=== PATIENT | female | born 1990 | race Caucasian/White ===

== ENCOUNTER 2019-10-09 19:59 | Emergency (ER) | payer OTHER ==
[~2019-10-09] VITALS: Ht 167.6 cm; Wt 67.1 kg
--- OUTSIDE RECORDS SUMMARY | ~2019-10-09 | XMS | Clinical Summary ---
Demographics + + + | Address | [address] | | | [place] [address] | + + + | Home Phone | | + + + | Preferred Language | Unknown | + + + | Marital Status | | + + + | Protestant Affiliation | Unknown | + + + | Race | Unknown | + + + | Ethnic Group | Unknown | + + + Author + + + | Author | [facility] (Historical as of | | | 06-29-19) | + + + | Organization | [facility] (Historical as of | | | 06-29-19) | + + + | Address | Unknown | + + + | Phone | Unavailable | + + + Support + + +---------+ + | Name | Relationship | Address | Phone | + + +---------+ + | Evelio Li | ECON | Unknown | | + + +---------+ + | Socorro Hernandez | ECON | Unknown | | + + +---------+ + | Message,Detailed | ECON | Unknown | | + + +---------+ + Care Team Providers + +------+ + | Care Inspector Conveyor Line Name | Role | Phone | + +------+ + | Seema Ware | PP | Unavailable | + +------+ + Allergies + + + + + + | Active Allergy | Reactions | Severity | Noted | Comments | | | | | Date | | + + + + + + | Oxycodone-Acetaminop | Itching | Medium | 03/19/20 | | | hen | | | 15 | | + + + + + + Current Medications + + +--------+---------+------+------+-------+ | Prescription | Sig. | Disp. | Refills | Star | End | Statu | | | | | | t | Date | s | | | | | | Date | | | + + +--------+---------+------+------+-------+ | midodrine | Take 1 tablet by | 270 | 3 | 08/0 | | Activ | | (PROAMATINE) 5 MG | mouth 3 (three) | tablet | | /20 | | e | | tablet | times daily. | | | 15 | | | + + +--------+---------+------+------+-------+ Active Problems + + + | Problem | Noted Date | + + + | Near syncope | 03/19/2015 | + + + | Hypotension (arterial) | | + + + | Near syncope | | + + + | POTS (postural orthostatic tachycardia syndrome) | | + + + Family History + + +------+ + | Medical History | Relation | Name | Comments | + + +------+ + | Cancer | Maternal | | breast | | | Grandmoth | | | | | er | | | + + +------+ + | Heart disease | Maternal | | CHF, cause unknown | | | Grandmoth | | | | | er | | | + + +------+ + + +------+--------+ + | Relation | Name | Status | Comments | + +------+--------+ + | Brother | | Alive | half brother | + +------+--------+ + | Brother | | Alive | half brother | + +------+--------+ + | Daughter | | Alive | | + +------+--------+ + | Father | | Other | unknown | + +------+--------+ + | Maternal Grandmother | | Alive | | + +------+--------+ + | Mother | | Alive | | + +------+--------+ + | Son | | Alive | | + +------+--------+ + Social History + +-------+ +--------+------+ | Tobacco Use | Types | Packs/Day | Years | Date | | | | | Used | | + +-------+ +--------+------+ | Never Smoker | | | | | + +-------+ +--------+------+ + + +---------+ + | Alcohol Use | Drinks/We | oz/Week | Comments | | | ek | | | + + +---------+ + | Yes | | | occ | + + +---------+ + + + + | Sex Assigned at | Date Recorded | | | | + + + | Not on file | | + + + Last Filed Vital Signs + + + + | Vital Sign | Reading | Time Taken | + + + + | Blood Pressure | 118/72 | 12/08/2015 10:18 AM PST | + + + + | Pulse | 102 | 12/08/2015 10:18 AM PST | + + + + | Temperature | - | - | + + + + | Respiratory Rate | - | - | + + + + | Oxygen Saturation | 99% | 12/08/2015 10:18 AM PST | + + + + | Inhaled Oxygen | - | - | | Concentration | | | + + + + | Weight | 71.7 kg (158 lb) | 12/08/2015 10:18 AM PST | + + + + | Height | 167.6 cm (5' 6") | 12/08/2015 10:18 AM PST | + + + + | Body Mass Index | 25.5 | 12/08/2015 10:18 AM PST | + + + + Plan of Treatment + + + + + | Health Maintenance | Due Date | Last Done | Comments | + + + + + | Vaccine: | | | | | Dtap/Tdap/Td (1 - | 8 | | | | Tdap) | | | | + + + + + | Cervical Cancer | | | | | Screening (Pap) | 9 | | | + + + + + | Vaccine: Influenza | | | | | (#1) | 9 | | | + + + + + Results Not on filefrom Last 3 Months Insurance +---------+--------+ +------+-------+ + | Payer | Benefi | Subscriber | Type | Phone | Address | | | t Plan | ID | | | | | | / | | | | | | | Group | | | | | +---------+--------+ +------+-------+ + | [employer] | PREMER | [id number] | | | [address] [address] | | | [address] | [phone] | | [place] | | | CARD | | | | [phone] | +---------+--------+ +------+-------+ + + +--------+ +--------+ + + | Guarantor Name | Accoun | Relation to | Date | Phone | Billing Address | | | t Type | Patient | of | | | | | | | | | | + +--------+ +--------+ + + | YOKASTA LI | Person | Self [birth year] Home: | [address] | | | al/[place] | | 1989 | [phone] | [place] [address] | | | [place] | | [phone] | | + +--------+ +--------+ + +
--- OUTSIDE RECORDS SUMMARY | ~2019-10-09 | XMS | Clinical Summary ---
Demographics + + + | Address | [address] | | | [place] [address] | + + + | Home Phone | | + + + | Preferred Language | Unknown | + + + | Marital Status | | + + + | Restorationism Affiliation | Unknown | + + + | Race | Unknown | + + + | Ethnic Group | Unknown | + + + Author + + + | Author | [facility] (Historical as of | | | 06-29-19) | + + + | Organization | [facility] (Historical as of | | | 06-29-19) [...] Team Providers + +------+ + | Care Dry Pan Feeder Name | Role | Phone | + [...] +------+-------+ + | PREMERA | PREMER | [id number] | | | [address] [address] | | | [address] | [address] | | [place] | | | CARD | | | | [phone] | +---------+--------+ +------+-------+ + + +--------+ +--------+ + + | Guarantor Name | Accoun | Relation to | Date | Phone | Billing Address | | | t Type | Patient | of | | | | | | | | | | + +--------+ +--------+ + + | YOKASTA LI | Person | Self | [birth year] | Home: | [address] | | | al/[place] | | 1989 | [phone] | [place] [address] | | | [place] | | | [phone] | | + +--------+ +--------+ + +
[~2019-10-09 19:59] MED LIST: COLON HERBAL C1 EACH PO; MIDODRINE HCL5 MG PO; MOTRIN IB200 MG PO
== END 2019-10-09 22:01 | disposition home or self-care (01) ==
LOC: ED 19:59
DX: N83.201 Unspecified ovarian cyst, right side (principal); Z88.5 Allergy status to narcotic agent; Z88.8 Allergy status to other drugs, medicaments and biological substances
CPT/HCPCS: 74177; 81001; 84703; 99284-25; Q9967

== ENCOUNTER 2021-06-27 05:56 | Emergency (ER) | payer OTHER ==
[~2021-06-27] VITALS: Ht 167.6 cm; Wt 63.5 kg
[2021-06-27] MEDS ORDERED: HYDROCODON-ACE1 EA10 PO (06:38)
[2021-06-27] MEDS ORDERED: ZOFRAN4 MG PO (06:38)
== END 2021-06-27 07:04 | disposition home or self-care (01) ==
LOC: ED 05:56
DX: U07.1 COVID-19 (principal); Z88.5 Allergy status to narcotic agent; Z88.8 Allergy status to other drugs, medicaments and biological substances
CPT/HCPCS: 99283; C9803; U0003

== ENCOUNTER 2023-10-04 19:04 | Emergency (ER) | payer OTHER ==
[~2023-10-04] VITALS: Ht 167.6 cm; Wt 67.0 kg
[~2023-10-04 19:04] MED LIST changes: +HYDROCODON-ACE1 EA10 PO; +ZOFRAN4 MG PO
[2023-10-04 20:27] VITALS: BP 122/70
== END 2023-10-04 20:28 | disposition home or self-care (01) ==
LOC: ED 19:04
DX: S05.02XA Injury of conjunctiva and corneal abrasion without foreign body, left eye, initial encounter (principal); H11.32 Conjunctival hemorrhage, left eye; W22.8XXA Striking against or struck by other objects, initial encounter; Z88.5 Allergy status to narcotic agent; Z88.8 Allergy status to other drugs, medicaments and biological substances
CPT/HCPCS: 99283

== ENCOUNTER 2024-11-14 00:34 | Emergency (ER) | payer OTHER ==
[~2024-11-14] VITALS: Ht 167.6 cm; Wt 78.9 kg
[2024-11-14 01:10] LABS: BILIRUBIN, URINE NEGATIVE (negative); BLOOD/HGB, URINE NEGATIVE (Negative); KETONE, URINE NEGATIVE (Negative); LEUK ESTERASE, URINE NEGATIVE (negative); NITRITE, URINE NEGATIVE (negative)
[2024-11-14 01:23] LABS: BASOPHILS 0.9 % (0-2); EOSINOPHILS 6.3 % (0-6); HEMATOCRIT 38.4 % (35.0-50.0); HEMOGLOBIN 13.3 g/dL (12.0-18.0); LYMPHOCYTES 32.5 % (24-44); MCH 31.4 (27-36); MCHC 34.6 g/dl (30-36); MCV 90.6 fl (81-99); MONOCYTES 7.5 % (0-12); NEUTROPHILS 52.8 % (39-80); PLATELET COUNT 223 K/uL (140-440); RBC 4.24 M/ul (4.3-5.7); RDW 12.7 (10.5-15.0)
[2024-11-14 01:39] LABS: ALBUMIN 3.2 g/dL (3.4-5.0); ALBUMIN/GLOBULIN RATIO 0.91 (1.1-2.4); ANION GAP 8.7 (7-21); BILIRUBIN, TOTAL 0.3 ng/dL (0.2-1.0); BUN/CREATININE RATIO 15.27 (6.0-28.6); CALCIUM 8.6 mg/dL (8.5-10.1); CREATININE, SERUM 0.72 mg/dL (0.55-1.02); POTASSIUM 3.7 mmol/L (3.5-5.1); PROTEIN, TOTAL 6.7 g/dL (6.4-8.2)
[2024-11-14 03:05] VITALS: BP 98/62
== END 2024-11-14 03:06 | disposition home or self-care (01) ==
LOC: ED 00:34
PROVIDERS: Emergency Medicine
DX: R10.31 Right lower quadrant pain (principal); R10.32 Left lower quadrant pain; Z88.5 Allergy status to narcotic agent; Z88.8 Allergy status to other drugs, medicaments and biological substances
CPT/HCPCS: 36415; 74177; 80053; 81003; 83690; 84703; 85025; 99284-25; Q9967